=== PATIENT | female | born 1980 | race Caucasian/White ===

== ENCOUNTER 2016-12-28 06:58 | Day surgery (SDC) | payer BC ==
[~2016-12-28] VITALS: Ht 160 cm; Wt 55.3 kg
[~2016-12-28 06:58] MED LIST: CLINDAMYCIN 900MG PREMIX 50 ML IV PRN; LORA10TA68 PO; MEDR150D3 IM; MULT-245 PO; OXYC-323 PO
[2016-12-28] MEDS ORDERED: ONDANSETRON PF 4 MG/2 ML VIAL. IV PRN (07:00)
[2016-12-28] MEDS ORDERED: PROCHLORPERAZINE 10 MG/2 ML VIAL. IV PRN (07:00)
[2016-12-28] MEDS ORDERED: IV RINGERS,LACTATED 1000ML 1,000 ML IV SCH (07:00)
[2016-12-28] MEDS ORDERED: MORPHINE SULFATE 2 MG/ML DISP.SYRIN. IV PRN (07:00)
[2016-12-28] MEDS ORDERED: fentaNYL PF VIAL 100 MCG/2 ML VIAL IV PRN ×2 (07:00)
[2016-12-28] MEDS ORDERED: LIDOCAINE 1% 1 ML SYRINGE. ID PRN (07:00)
[2016-12-28] MEDS ORDERED: HYDROmorphone 2 MG/ML VIAL IV PRN (07:00)
[2016-12-28 07:14] LABS: NEG OBC UR NEG; POS OBC UR POS
[2016-12-28] MEDS ORDERED: FERRIC SUBSULFATE 8 ML SOL.W.APPL TP ONE (07:21)
[2016-12-28] MEDS ORDERED: LIDOCAINE 1%/EPI 1:100,000 20 ML VIAL. ONE (07:21)
[2016-12-28] MEDS ORDERED: LIDOCAINE 2% PF Vial for OR 5 ML VIAL. ONE (08:20)
[2016-12-28] MEDS ORDERED: PROPOFOL 20 ML IV ONE (08:20)
[2016-12-28] MEDS ORDERED: fentaNYL PF VIAL 100 MCG/2 ML VIAL ONE (08:21)
[2016-12-28] MEDS ORDERED: ePHEDrine PF IN SALINE 50 MG/5 ML DISP.SYRIN IV ONE (08:31)
[2016-12-28] MEDS ORDERED: DEXAMETHASONE SOD PHOS 20 MG/5 ML VIAL. ONE (08:33)
[2016-12-28] MEDS ORDERED: SEVOFLURANE UP TO 15 MINUTES. IH ONE (08:33)
[2016-12-28] MEDS ORDERED: ONDANSETRON PF 4 MG/2 ML VIAL. ONE (08:37)
--- NOTE | 2016-12-28 08:51 | PDOC ---
BRIEF OPERATIVE NOTE Pre-Op Diagnosis SHELTON 1 Post-Op Diagnosis SAme Procedure Performed Cervical Cone Biopsy Surgeon Dr. Victor Anesthesia Type: General Blood Loss Less than 5 ml Specimens Obtained cervical cone bx Findings SHELTON 1 Complications none Additional Remarks pt. BERRY Castelan Jr, MD Dec 28, 2016 08:51
--- NOTE | 2016-12-28 08:52 | DISCH ---
DISCHARGE INSTRUCTIONS Condition on Discharge Condition on Discharge: Stable Activity After Discharge Activity Instructions for Disc: Activity as tolerated Lifting Instructions after Dis: No heavy lifting Driving Instructions after Dis: Do not drive today Diet after Discharge Diet after Discharge: Regular Contacting the [facility] after DC Call your doctor for: Concerns you may have Follow-Up Follow up with: Dr. Victor in 2 weeks. BERRY VICTOR Jr, MD Dec 28, 2016 08:52
[2016-12-28 09:40] VITALS: BP 121/77
--- NOTE | 2016-12-28 10:47 | OP ---
DATE OF SURGERY: PREOPERATIVE DIAGNOSIS: SHELTON 1. POSTOPERATIVE DIAGNOSIS: SHELTON 1. PROCEDURE: Cervical cone biopsy. SURGEON: Berry Victor MD ANESTHESIA: GETA. ESTIMATED BLOOD LOSS: Less than 5 mL. COMPLICATIONS: None. FINDINGS: Cervical dysplasia, SHELTON 1. SUMMARY: A 36-year-old female, who had a colposcopic biopsy demonstrating SHELTON 1, recurrent cervical cone biopsy. The patient was counseled on the risks, benefits, and expectations and voiced a clear understanding to proceed. DESCRIPTION OF PROCEDURE: The patient was taken to surgery suite and placed in the dorsal lithotomy position. She was prepped with Betadine solution and draped in a sterile fashion. After adequate anesthesia, weighted speculum and curved Jaz were placed vaginally. The anterior lip of the cervix was grasped with a single-tooth tenaculum. Cervix was injected with 1% lidocaine in a circumferential manner, 2-0 Vicryl sutures were placed at the 3 o'clock and 9 o'clock positions to better mobilize the cervix. Cervical cone biopsy was performed with the angled scapula. Once the portion of the cervix was removed, the remaining endocervical canal was cauterized with Bovie cautery and Monsel's solution was also applied for better hemostasis. The single-tooth tenaculum, weighted speculum, and curved Jaz were then removed. The patient tolerated the procedure well and was taken to recovery room in stable condition. Sponge and needle counts were correct x 3. BERRY VICTOR MD DR: KARINA/madeline JOB#: [id number] / [id number]
--- NOTE | 2017-01-01 13:40 | PATHOLOGY ---
PATHOLOGY REPORT * * * * * * * * FINAL DIAGNOSIS: Uterine cervix, cervical cone biopsy: - Focal mild active chronic cervicitis with focal scarring, chronic inflammation, and remote hemorrhage within region of squamocolumnar junction consistent with previous biopsy site. COMMENT: The entire cervix is submitted for histologic evaluation. There is no evidence of dysplasia or malignancy. (JPM:; d/t: 01/01/2017) REPORT ELECTRONICALLY SIGNED BY: Magen Nieves M.D. DATE/TIME: 01/01/2017 13:39 * * * * * * * * GROSS PATHOLOGY: Received in formalin labeled "Judy Pérez, cervical cone, stitch at 12:00," is an intact LEEP specimen measuring 1.4 x 1.2 x 2.0 cm in greatest dimensions. The specimen is oriented with a suture marking the 12:00 position. The 1.0 cm cervical os is surrounded by white-dumas, smooth ectocervical mucosa. The endocervical margin is inked blue and the ectocervical margin is inked black. The specimen is divided into four quadrants in a clockwise fashion, sectioned, and entirely submitted as follows: A1 12 to 3:00 margin A2 3 to 6:00 margin A3 6 to 9:00 margin A4 9 to 12:00 margin. (CAA; 12/29/2016) INITIAL CPT CODE(S): A; 86713 Professional services performed by [facility] at [address] [address] Technical services performed by [facility] at [address] [place] [address], [address] [address]. SPECIMEN(S) RECEIVED: A.Cervical cone CLINICAL HISTORY: Dysplasia PATIENT: JUDY PÉREZ /AGE: 512/03/1980 (Age: 36) PATIENT #: [id number] ALT CASE #: SPECIMEN COLLECTION DATE: 12/28/2016 SPECIMEN RECEIVED DATE: 12/28/2016 [facility] - [address] [place] [address] - PHONE: [phone] * * * END OF REPORT * * *
== END 2016-12-28 09:47 | disposition home or self-care (01) ==
LOC: SURG 06:58
PROVIDERS: ATTEND Obstetrics & Gynecology
DX: N87.0 Mild cervical dysplasia (principal); N87.9 Dysplasia of cervix uteri, unspecified; Z72.89 Other problems related to lifestyle; Z88.1 Allergy status to other antibiotic agents; Z88.2 Allergy status to sulfonamides
CPT/HCPCS: 57500; 81025; J1100; J2405; J2704; J3010; J3490